=== PATIENT | male | born 1975 | race Caucasian/White ===

== ENCOUNTER 2023-09-02 04:58 | Day surgery (SDC) | payer BC ==
[2023-08-31 12:04] VITALS: BMI 27.2
[2023-09-02 09:31] VITALS: TEMP 97.3
[2023-09-02 10:06] VITALS: BP 120/66; PULSE 63; RESP 18
== END 2023-09-02 12:50 | disposition home or self-care (01) ==
LOC: JASU-ENDO 04:58
PROVIDERS: ATTEND Internal Medicine Gastroenterology
PROC: 0DBN8ZX Excision of Sigmoid Colon, Via Natural or Artificial Opening Endoscopic, Diagnostic (ICD-10-PCS; principal; 2023-09-02 08:30)
DX: Z12.11 Encounter for screening for malignant neoplasm of colon (principal); K64.8 Other hemorrhoids; K63.89 Other specified diseases of intestine; D12.5 Benign neoplasm of sigmoid colon
CPT/HCPCS: 88305-TC